=== PATIENT | female | born 1940 | race Two or more races ===

== ENCOUNTER 2018-02-10 11:35 | Outpatient (CLI) | payer OTHER ==
[~2018-02-10 11:35] MED LIST: PLETAL50 MG; SYNTHROID100 MCG; [UNRECOGNIZED DRUG - OTHER]
== END 2018-02-10 11:40 | disposition home or self-care (01) ==
LOC: SONOGRAMA 11:35
DX: M65.811 Other synovitis and tenosynovitis, right shoulder (principal)

== ENCOUNTER 2018-02-19 12:11 | Outpatient (CLI) | payer OTHER | END 2018-02-19 16:13 | disposition home or self-care (01) | LOC: RAD 501 12:11 | DX: M16.0 Bilateral primary osteoarthritis of hip (principal) ==

== ENCOUNTER → 2018-09-10 | Outpatient (CLI) | payer OTHER | END | disposition home or self-care (01) | LOC: NUCLEAR 09:00 | DX: I70.213 Atherosclerosis of native arteries of extremities with intermittent claudication, bilateral legs (principal) ==

== ENCOUNTER 2019-11-27 02:09 | Emergency (ER) | payer OTHER ==
[~2019-11-27] VITALS: Ht 160 cm; Wt 71.7 kg
[2019-11-27] MEDS ORDERED: MOTION SICKNESS25 M1 PO (06:18)
== END 2019-11-27 06:32 | disposition home or self-care (01) ==
LOC: ER 02:09
DX: R42 Dizziness and giddiness (principal); R06.02 Shortness of breath; R53.1 Weakness

== ENCOUNTER 2020-12-28 10:17 | Outpatient (CLI) | payer OTHER ==
[~2020-12-28 10:17] MED LIST changes: +MOTION SICKNESS25 M1 PO
== END 2020-12-28 10:18 | disposition home or self-care (01) ==
LOC: NUCLEAR 10:17 → EDBD 10:17 → NUCLEAR 10:18
PROVIDERS: ATTEND Family Medicine
DX: I83.813 Varicose veins of bilateral lower extremities with pain (principal); I70.213 Atherosclerosis of native arteries of extremities with intermittent claudication, bilateral legs

== ENCOUNTER 2021-01-05 10:03 | Outpatient (CLI) | payer OTHER | END 2021-01-05 10:05 | disposition home or self-care (01) | LOC: NUCLEAR 10:03 | PROVIDERS: ATTEND Family Medicine | DX: I83.813 Varicose veins of bilateral lower extremities with pain (principal); I70.213 Atherosclerosis of native arteries of extremities with intermittent claudication, bilateral legs ==

== ENCOUNTER 2022-08-17 19:01 | Emergency (ER) | payer OTHER ==
[~2022-08-17] VITALS: Ht 162.6 cm; Wt 64.9 kg
[2022-08-18] MEDS ORDERED: MELOXICAM7.5 MG PO (08:22)
== END 2022-08-17 23:07 | disposition home or self-care (01) ==
LOC: ER 19:01 → EDBD 19:07 → ER 23:07
DX: M79.89 Other specified soft tissue disorders (principal); Z88.8 Allergy status to other drugs, medicaments and biological substances; I10 Essential (primary) hypertension; E03.9 Hypothyroidism, unspecified

== ENCOUNTER → 2022-08-18 | Emergency (ER) | payer OTHER ==
[~2022-08-18] VITALS: Ht 157.5 cm; Wt 64.4 kg
[~2022-08-18] MED LIST changes: +MELOXICAM7.5 MG PO
== END | disposition home or self-care (01) ==
LOC: ER 08:02 → EDBD 08:05 → ER 08:05
DX: M79.662 Pain in left lower leg (principal); Z88.8 Allergy status to other drugs, medicaments and biological substances; E03.9 Hypothyroidism, unspecified; I10 Essential (primary) hypertension

== ENCOUNTER 2022-08-24 08:53 | Outpatient (CLI) | payer OTHER | END 2022-08-24 08:57 | disposition home or self-care (01) | LOC: NUCLEAR 08:53 | PROVIDERS: ATTEND Internal Medicine Cardiovascular Disease | DX: I82.402 Acute embolism and thrombosis of unspecified deep veins of left lower extremity (principal) ==

== ENCOUNTER 2023-02-07 20:52 | Emergency (ER) | payer OTHER ==
[~2023-02-07] VITALS: Ht 160 cm; Wt 63.5 kg
[2023-02-07] MEDS ORDERED: NEURONTIN600 M1 (21:15)
[2023-02-07] MEDS ORDERED: BISOPROLOL FUMAR5 MG (21:15)
== END 2023-02-08 05:23 ==
LOC: ER 20:52
DX: R00.2 Palpitations (principal); I10 Essential (primary) hypertension; Z88.8 Allergy status to other drugs, medicaments and biological substances

== ENCOUNTER 2023-06-03 20:59 | Emergency (ER) | payer OTHER ==
[~2023-06-03] VITALS: Ht 157.5 cm; Wt 59.0 kg
[~2023-06-03 20:59] MED LIST changes: +BISOPROLOL FUMAR5 MG; +NEURONTIN600 M1
[2023-06-03 21:58] LABS: HEMATOCRIT 36.3 % (36.0-45.00); HEMOGLOBIN 11.9 g/dL (12.0-15.00); MEAN CELL VOLUME 95.1 fL (80.00-100.00); MEAN CORPUSCULAR HEMOGLOBIN 31.3 pg (27.00-32.0); MEAN CORPUSCULAR HGB CONC 32.9 g/dl (32.0-36.0); PLATELET COUNT 187 K/uL (150-450); RED BLOOD COUNT 3.82 M/uL (4.00-6.00); RED CELL DISTRIBUTION WIDTH 14.2 % (11.5-14.5)
[2023-06-03 22:18] LABS: CALCIUM 9.7 mg/dL (8.5-10.1); CREATININE SERUM 0.78 mg/dL (0.55-1.02); GFR 70.71
[2023-06-03 22:22] LABS: PH,URINE 6.5 (5.0-8.0); URINE APPEARANCE Clear; URINE BACTERIA 8.7 uL (0.0-1933); URINE BILIRRUBIN Negative (NEGATIVE); URINE BLOOD Small; URINE COLOR Yellow; URINE EPITHELIAL CELLS 1.5 uL (0.0-38.8); URINE GLUCOSE Negative (NEGATIVE); URINE LEUKOCYTE Negative; URINE NITRATE Negative; URINE PROTEIN Negative (NEGATIVE); URINE RBC 11.7 uL (0.0-20.8); URINE WBC 2.9 uL (0.0-23.2)
== END 2023-06-04 00:06 | disposition home or self-care (01) ==
LOC: ER
PROVIDERS: General Practice
DX: R53.1 Weakness (principal); I10 Essential (primary) hypertension; Z88.6 Allergy status to analgesic agent; F41.1 Generalized anxiety disorder

== ENCOUNTER 2023-09-13 13:04 | Outpatient (CLI) | payer OTHER | END 2023-09-13 13:11 | disposition home or self-care (01) | LOC: RAD 13:04 | PROVIDERS: ATTEND Family Medicine | DX: M16.7 Other unilateral secondary osteoarthritis of hip (principal); Z88.5 Allergy status to narcotic agent ==

== ENCOUNTER 2024-01-13 09:52 | Outpatient (CLI) | payer OTHER | END 2024-01-13 09:54 | disposition home or self-care (01) | LOC: NUCLEAR 09:52 | PROVIDERS: ATTEND Internal Medicine Cardiovascular Disease | DX: I82.401 Acute embolism and thrombosis of unspecified deep veins of right lower extremity (principal) ==

== ENCOUNTER 2024-03-13 10:52 | Outpatient (CLI) | payer OTHER | END 2024-03-13 10:53 | disposition home or self-care (01) | LOC: RAD 10:52 | DX: M54.50 Low back pain, unspecified (principal); M41.9 Scoliosis, unspecified ==

== ENCOUNTER 2024-06-26 10:04 | Outpatient (CLI) | payer OTHER | END 2024-06-26 10:09 | disposition home or self-care (01) | LOC: RAD 10:04 | DX: I10 Essential (primary) hypertension (principal); K59.00 Constipation, unspecified ==